=== PATIENT | male | born 1960 | race Two or more races ===

== ENCOUNTER → 2017-01-02 | Outpatient (CLI) | payer OTHER ==
[~2017-01-02] MED LIST: CLONIDINE HCL0.1 MG PO; LOPRESSOR PO; MULTIPLE VITAMI1 T13 PO; PANTOPRAZOLE SO40 MG
--- NOTE | ~2017-01-02 | CR169 ---
[facility] A Service of [facility] & [facility] RADIOLOGY TEXT RESULTS PATIENT: NISA MARIE LOCATION: [facility] : 56 UNIT #: [id number] AGE: [address]: Kirk Bryant MD SEX: M ORDER DR: [id number] [facility]. [place], [place] [address] [id number] O MR#: [id number] Acc #: [id number] NAME: NISA MARIE : 1960 SEX: M STUDY DATE/TIME: 01/02/2017 10:16 UNIT: [facility] ROOM: STUDY DESCRIPTION: CR Knee 2 Views Lt Attending Physician: Kirk Bryant M.D. Referring Physician: Kirk Bryant M.D. Ordering Physician: Kirk Bryant M.D. Primary Care Physician: Kirk Bryant M.D. MEDICAL IMAGING REPORT This report is preliminary unless electronic signature is present EXAM Left knee INDICATIONS Left knee pain for 3 weeks, after fall. FINDINGS AP and lateral views of the left knee were obtained. There is no fracture or effusion. There is a bone-density object posterior to the knee joint. It either represents one 10-mm object or two or three adjacent objects. It is difficult to see on the AP view. A fabella is also visible. IMPRESSION There is a smoothly marginated 10-mm area of bone density seen posterior to the knee joint on the lateral view and a loose body cannot be excluded. Otherwise, the study is normal. Dictated by... Wan Pena M.D. THIS IS AN ELECTRONICALLY VERIFIED REPORT Wan Pena M.D. at 01/03/2017 6:04 AM MIREYA/heather TD: 01/03/2017 02:31 JOB #: [id number] MEDICAL IMAGING REPORT Page 1 of 1 COPY
--- NOTE | ~2017-01-02 | CR170 ---
[facility] A Service of [facility] & [facility] RADIOLOGY TEXT RESULTS PATIENT: NISA MARIE LOCATION: [facility] : 56 UNIT #: [id number] AGE: [address]: Kirk Bryant MD SEX: M ORDER DR: [id number] [facility]. [place], [place] [address] [id number] O MR#: [id number] Acc #: [id number] NAME: NISA MARIE : 1960 SEX: M STUDY DATE/TIME: 01/02/2017 10:16 UNIT: [facility] ROOM: STUDY DESCRIPTION: CR Knee 2 Views Rt Attending Physician: Kirk Bryant M.D. Referring Physician: Kirk Bryant M.D. Ordering Physician: Kirk Bryant M.D. Primary Care Physician: Kirk Bryant M.D. MEDICAL IMAGING REPORT This report is preliminary unless electronic signature is present EXAM Right knee INDICATIONS Right knee pain after fall 3 weeks ago. FINDINGS AP and lateral views of the right knee were obtained. There is minimal degenerative spurring from the medial tibial plateau. There is no fracture or effusion. Joint spaces are normal. IMPRESSION There seems to be minimal degenerative change in the medial tibial plateau, otherwise, the study is normal. Dictated by... Wan Pena M.D. THIS IS AN ELECTRONICALLY VERIFIED REPORT Wan Pena M.D. at 01/03/2017 6:04 AM FEL/psc TD: 01/03/2017 02:37 JOB #: [id number] MEDICAL IMAGING REPORT Page 1 of 1 COPY
== END | disposition home or self-care (01) ==
LOC: CRAD 09:57
DX: M25.561 Pain in right knee (principal); M25.562 Pain in left knee
CPT/HCPCS: 73560